=== PATIENT | male | born 1980 | race Caucasian/White ===

== ENCOUNTER 2020-09-17 21:57 | Emergency (ER) | payer MEDICAID ==
[~2020-09-17] VITALS: Ht 188 cm; Wt 93.0 kg
--- NOTE | 2020-09-17 22:50 | NUR ---
PATIENT WAS MSE BY DR AGUIRRE IN ROOM 04B.
[2020-09-17] MEDS ORDERED: IMIQ1CRE11 TP (22:58)
--- NOTE | 2020-09-17 23:03 | NUR ---
Patient discharged to home in stable condition. Written and verbal after care instructions given. Patient verbalizes understanding of instructions. Stressed follow up or return to ER for worsening s/s.
[2020-09-17 23:04] VITALS: BP 129/77
== END 2020-09-17 23:07 | disposition home or self-care (01) ==
LOC: ER 21:57
DX: B07.9 Viral wart, unspecified (principal)
CPT/HCPCS: 36415; 86592; A4663

== ENCOUNTER 2021-11-19 17:37 | Emergency (ER) | payer MEDICAID ==
[~2021-11-19] VITALS: Ht 185.4 cm; Wt 93.0 kg
[~2021-11-19 17:37] MED LIST: IMIQ1CRE11 TP
--- NOTE | 2021-11-19 19:05 | NUR ---
Dr Peter at bedside, MSE in progress.
--- NOTE | 2021-11-19 19:15 | NUR ---
Patient discharged to home in stable condition. Written and verbal after care instructions given. Patient verbalizes understanding of instructions. Stressed follow up or return to ER for worsening s/s. pt ambulated with steady gait. denies pain. no SOB. no chest pain. AOx4
[2021-11-19 19:16] VITALS: BP 122/72
== END 2021-11-19 19:17 | disposition home or self-care (01) ==
LOC: ER 17:39
DX: H11.31 Conjunctival hemorrhage, right eye (principal); Z85.828 Personal history of other malignant neoplasm of skin
CPT/HCPCS: A4663